=== PATIENT | female | born 1990 | race Caucasian/White ===

== ENCOUNTER 2022-04-15 23:22 | Emergency (ER) | payer OTHER, SELFPAY ==
[2022-04-15 23:42] VITALS: BP 120/73; PULSE 78; RESP 16; TEMP 36.2; O2SAT 100
--- NOTE | 2022-04-16 00:12 | PC.NURSE ---
Pt approached triage desk and states I just want to go home . States she does not want to be seen. Pt advised to come back to ED with any other concerns. Ambulated out of ED with steady gait, in no obvious distress.
== END 2022-04-16 00:12 | disposition left against medical advice (07) ==
LOC: ANHED 04-16 00:40
DX: R10.31 Right lower quadrant pain (principal)
CPT/HCPCS: 99199